=== PATIENT | male | born 1970 | race African-American/Black ===

== ENCOUNTER 2024-02-12 22:13 | Emergency (ER) | payer OTHER ==
[2024-02-12] MEDS ORDERED: Ibuprofen 200 MG TAB ONE (22:36)
[2024-02-12] MEDS ORDERED: Acetaminophen 500 MG TAB ONE (23:46)
== END 2024-02-13 00:03 ==
LOC: NAV ERS 22:13 → EEVIPCON 22:13 → NAV ERS 02-13 00:03
DX: S83.92XA Sprain of unspecified site of left knee, initial encounter (principal); S70.02XA Contusion of left hip, initial encounter; S40.012A Contusion of left shoulder, initial encounter; I50.9 Heart failure, unspecified; J44.9 Chronic obstructive pulmonary disease, unspecified; W19.XXXA Unspecified fall, initial encounter